=== PATIENT | female | born 1995 | race Caucasian/White ===

== ENCOUNTER 2017-12-27 12:07 | Observation (INO) | payer MEDICAID, OTHER, SELFPAY ==
[2017-12-27 12:43] LABS: Urine Blood NEGATIVE (NEG); Urine Glucose NEGATIVE (NEG); Urine Protein TRACE (NEG)
[2017-12-27] MEDS ORDERED: NA CHLORIDE 0.9% 1,000 ML ONE ×5 (12:48→17:53)
[2017-12-27 12:56] LABS: Absolute Lymphocytes (CBC) 2.3 K/uL (0.7-4.9); Absolute Monocytes 0.8 K/uL (0.1-1.3); Basophils % 0.6 % (0-1.3); Hematocrit 37.1 % (36.0-45.0); Lymphocytes % 22.6 % (15.3-44.8); MCH 31.2 pg (27.0-35.0); MPV 9.7 fL (7.6-11.3); Monocytes % 8.1 % (3.3-12.3); RBC Red Blood Cell Count 4.08 M/uL (3.86-4.86)
[2017-12-27 12:59] LABS: Urine Bacteria 20-50 /HPF (<20); Urine RBC NONE SEEN /HPF (NONE SEEN)
[2017-12-27 13:00] LABS: Urine Amorphous Sediment 3+ /HPF (NONE SEEN); Urine Culture Reflex Order NOT NEEDED
[2017-12-27 13:33] LABS: Potassium 3.5 mmol/L (3.5-5.1)
--- NOTE | 2017-12-27 13:48 | ER ---
Nurse's Notes [facility] Name: Stephanie Campos Age: 22 yrs Sex: Female : 1995 Arrival Date: 12/27/2017 Time: 12:08 Bed 5 Private MD: Diagnosis: Ectopic Presentation: 12/27 12:11 Presenting complaint: Patient states: Sudden sharp pain in lower abdomen that radiates aj up into chest. Also reports right flank pain that started suddenly. Reports episode of diaphoresis and lightheadedness. Transition of care: patient was not received from another setting of care. Onset of symptoms was December 27, 2017. Risk Assessment: Do you want to hurt yourself or someone else? Patient reports no desire to harm self or others. Initial Sepsis Screen: Does the patient meet any 2 criteria? No. Patient's initial sepsis screen is negative. Does the patient have a suspected source of infection? No. Patient's initial sepsis screen is negative. Care prior to arrival: None. 12:11 Method Of Arrival: Ambulatory 12:11 Acuity: OPHELIA 2 aj Triage Assessment: 12:13 General: Appears in no apparent distress. comfortable, Behavior is calm, cooperative, aj appropriate for age. Pain: Complains of pain in back, chest, abdomen and pelvis. Neuro: Level of Consciousness is awake, alert, obeys commands, Oriented to person, place, time, situation, Appropriate for age. Neuro: Reports dizziness. Respiratory: Airway is patent Respiratory effort is even, unlabored, Respiratory pattern is regular, symmetrical. GI: Reports lower abdominal pain, upper abdominal pain. Derm: Skin is intact, is healthy with good turgor, Skin is pink, warm \T\ dry. normal. 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 - Social history:: Smoking status: Patient uses tobacco products, denies chronic smoking, but will smoke occasionally. - Ebola Screening: : Patient negative for fever greater than or equal to 101.5 degrees Fahrenheit, and additional compatible Ebola Virus Disease symptoms Patient denies exposure to infectious person Patient denies travel to an Ebola-affected area in the 21 days before illness onset No symptoms or risks identified at this time. Screenin:24 Abuse screen: Denies threats or abuse. Denies injuries from another. Nutritional bp screening: No deficits noted. Tuberculosis screening: No symptoms or risk factors identified. Fall Risk None identified. Assessment: 12:24 General: Appears distressed, uncomfortable, Behavior is cooperative, appropriate for bp age, anxious. Pain: Complains of pain in abdomen. Neuro: Level of Consciousness is obeys commands, lethargic, Oriented to person, place, time, situation, Appropriate for age. Cardiovascular: Rhythm is sinus tachycardia. Respiratory: Airway is patent Respiratory effort is even, unlabored, Respiratory pattern is regular, symmetrical. GI: Bowel sounds present X 4 quads. Abd is soft X 4 quads Abdomen is tender to palpation in umbilical area, right lower quadrant and left lower quadrant. : No signs and/or symptoms were reported regarding the genitourinary system. EENT: No deficits noted. Derm: No deficits noted. Musculoskeletal: Circulation, motion, and sensation intact. Range of motion: intact in all extremities. 12:45 Reassessment: PT GROSSLY TACHYCARDIC ON MONITOR, PROVIDER INFORMED. IVF INFUSING, U/S bp PENDING FOR R/O ECTOPIC. 13:03 Reassessment: PT TO U/S. LAB TO SEND PHLEBOTOMY FOR RECOLLECT. bp 13:29 Reassessment: pt returned from US via stretcher, Tech reports pt felt like she was iw going to faint when she sat up, pt now lying in supine position, pt remains tachycardia at 115 bpm, BLAISE Sanford at bedside, order for 2nd IV placement. 13:37 Reassessment: PER U/S, INITIAL IMPRESSION INDICATES POSSIBLE ECTOPIC. bp 14:15 Reassessment: INSTRUCTIONAL ASSISTANT AT B/S. PT TBA TO OR. bp 14:47 Reassessment: OR AT B/S. PT BRIEFLY HYPOTENSIVE AND DIAPHORETIC, NS BOLUS ADMINISTERED. bp PT KIKA WITH OR PERSONNEL. Vital Signs: 12:13 BP 123 / 88; Pulse 126; Resp 19; Temp 97.9; Pulse Ox 100% on R/A; Weight 70.31 kg; aj Height 5 ft. 4 in. (162.56 cm); 12:45 BP 121 / 79; Pulse 152; Resp 20; Pulse Ox 100% ; bp 13:29 BP 103 / 72; Pulse 115; Resp 18 S; Pulse Ox 99% on R/A; Pain 10/10; iw 13:38 BP 116 / 78; Pulse 67; Resp 14; Pulse Ox 100% ; bp 14:30 BP 109 / 81; Pulse 130; Resp 14; Pulse Ox 100% ; bp 14:34 BP 75 / 65; Pulse 123; Resp 15; Pulse Ox 98% ; bp 14:42 BP 94 / 56; Pulse 109; Resp 15; Pulse Ox 98% ; bp 12:13 Body Mass Index 26.61 (70.31 kg, 162.56 cm) aj ED Course: 12:08 Patient arrived in ED. mr 12:12 Triage completed. aj 12:13 Arm band placed on right wrist. Patient placed in an exam room. aj 12:15 Juvenal Rodriguez NP is PHCP. pm1 12:15 Indra Tate MD is Attending Physician. pm1 12:23 Neftaly Moore, SAKINA is Primary Nurse. bp 12:24 Patient has correct armband on for positive identification. Bed in low position. Call bp light in reach. Side rails up X2. 12:34 Urine collected: clean catch specimen, clear. dh3 12:34 Inserted saline lock: 20 gauge in right antecubital area, using aseptic technique. bp Blood collected. 13:22 US Transvaginal Ob In Process Unspecified. EDMS 13:45 Lab(s) recollected, by me, sent to lab. dh3 13:45 Inserted saline lock: 22 gauge in left antecubital area, using aseptic technique. bp 13:47 Krista Mcdonough MD is Hospitalizing Provider. pm1 14:06 EKG done, by diagnostic technician. reviewed by Juvenal Rodriguez NP. sm3 14:50 No provider procedures requiring assistance completed. bp 14:50 Patient admitted, IV remains in place. bp Administered Medications: 12:47 Drug: NS 0.9% 1000 ml Route: IV; Rate: 1000 ml; Site: right antecubital; bp 14:15 Follow up: IV Status: Completed infusion; IV Intake: 1000ml bp 14:15 Drug: fentaNYL (PF) 25 mcg Route: IVP; Site: right antecubital; bp 14:30 Follow up: Response: Pain is decreased bp 14:15 Drug: NS 0.9% 1000 ml Route: IV; Rate: 125 ml/hr; Site: right antecubital; bp 14:31 Follow up: IV Status: Infusion continued upon admission bp 14:35 Drug: Zofran 4 mg Route: IVP; Site: right antecubital; bp 14:47 Follow up: Response: Nausea is decreased bp Intake: 14:15 IV: 1000ml; Total: 1000ml. bp Outcome: 13:47 Decision to Hospitalize by Provider. pm1 14:51 Admitted to OR accompanied by nurse, via stretcher, with chart. bp 14:52 Condition: stable bp 14:52 Instructed on the need for admit. 14:54 Patient left the ED. bp Signatures: Dispatcher [employer] EDMS Breana Miranda RN RN aj Rivera, Mary mr Williams, Irene, RN Juvenal Toro, BLAISE OVERLAY OPERATOR pm1 Luz Maria Ingram 3 Neftaly Moore RN RN bp Montes, Shakira 3
--- NOTE | 2017-12-27 13:48 | EDPHYS ---
Physician Documentation [facility] Name: Stephanie Campos Age: 22 yrs Sex: Female : 1995 Arrival Date: 12/27/2017 Time: 12:08 Bed 5 Private MD: ED Physician Indra Tate HPI: 12/27 12:44 This 22 yrs old Female presents to ER via Ambulatory with complaints of pm1 Abdominal Pain, Flank Pain. 12:44 The patient presents with abdominal pain in the lower abdomen, right flank. Onset: The pm1 symptoms/episode began/occurred this morning. The symptoms do not radiate. Associated signs and symptoms: Pertinent positives: dizziness, Pertinent negatives: nausea, vomiting, and diarrhea, chest pain, shortness of breath. The symptoms are described as sharp. Modifying factors: The symptoms are alleviated by nothing, the symptoms are aggravated by nothing. Severity of pain: in the emergency department the pain is actually worse. The patient has not experienced similar symptoms in the past. The patient has not recently seen a physician. 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 - Social history:: Smoking status: Patient uses tobacco products, denies chronic smoking, but will smoke occasionally. - Ebola Screening: : Patient negative for fever greater than or equal to 101.5 degrees Fahrenheit, and additional compatible Ebola Virus Disease symptoms Patient denies exposure to infectious person Patient denies travel to an Ebola-affected area in the 21 days before illness onset No symptoms or risks identified at this time. ROS: 12:44 Constitutional: Negative for fever, chills, and weight loss, Eyes: Negative for injury, pm1 pain, redness, and discharge, ENT: Negative for injury, pain, and discharge, Neck: Negative for injury, pain, and swelling, Cardiovascular: Negative for chest pain, palpitations, and edema, Respiratory: Negative for shortness of breath, cough, wheezing, and pleuritic chest pain, Back: Negative for injury and pain. 12:44 : Negative for injury, bleeding, discharge, and swelling, MS/Extremity: Negative for injury and deformity, Skin: Negative for injury, rash, and discoloration. 12:44 Abdomen/GI: Positive for abdominal pain, of the suprapubic area. 12:44 Abdomen/GI: Negative for nausea, vomiting, and diarrhea. 12:44 Back: Positive for flank pain, on the right. 12:44 Neuro: Positive for dizziness, Negative for numbness, syncope, tingling, weakness. Exam: 12:44 Constitutional: This is a well developed, well nourished patient who is awake, alert, pm1 and in no acute distress. Head/Face: Normocephalic, atraumatic. Eyes: Pupils equal round and reactive to light, extra-ocular motions intact. Lids and lashes normal. Conjunctiva and sclera are non-icteric and not injected. Cornea within normal limits. Periorbital areas with no swelling, redness, or edema. ENT: Nares patent. No nasal discharge, no septal abnormalities noted. Tympanic membranes are normal and external auditory canals are clear. Oropharynx with no redness, swelling, or masses, exudates, or evidence of obstruction, uvula midline. Mucous membranes moist. Neck: Trachea midline, no thyromegaly or masses palpated, and no cervical lymphadenopathy. Supple, full range of motion without nuchal rigidity, or vertebral point tenderness. No Meningismus. Chest/axilla: Normal chest wall appearance and motion. Nontender with no deformity. No lesions are appreciated. Cardiovascular: Regular rate and rhythm with a normal S1 and S2. No gallops, murmurs, or rubs. Normal PMI, no JVD. No pulse deficits. Respiratory: Lungs have equal breath sounds bilaterally, clear to auscultation and percussion. No rales, rhonchi or wheezes noted. No increased work of breathing, no retractions or nasal flaring. 12:44 Skin: Warm, dry with normal turgor. Normal color with no rashes, no lesions, and no evidence of cellulitis. MS/ Extremity: Pulses equal, no cyanosis. Neurovascular intact. Full, normal range of motion. 12:44 Abdomen/GI: Inspection: abdomen appears normal, Bowel sounds: normal, Palpation: soft, moderate abdominal tenderness, in the suprapubic area and left lower quadrant, mass, is not appreciated. 12:44 Back: pain, of the right low back, ROM is normal, normal spinal alignment noted. 12:44 Neuro: Orientation: is normal, Motor: is normal, moves all fours. Vital Signs: 12:13 BP 123 / 88; Pulse 126; Resp 19; Temp 97.9; Pulse Ox 100% on R/A; Weight 70.31 kg; aj Height 5 ft. 4 in. (162.56 cm); 12:45 BP 121 / 79; Pulse 152; Resp 20; Pulse Ox 100% ; bp 13:29 BP 103 / 72; Pulse 115; Resp 18 S; Pulse Ox 99% on R/A; Pain 10/10; iw 13:38 BP 116 / 78; Pulse 67; Resp 14; Pulse Ox 100% ; bp 14:30 BP 109 / 81; Pulse 130; Resp 14; Pulse Ox 100% ; bp 14:34 BP 75 / 65; Pulse 123; Resp 15; Pulse Ox 98% ; bp 14:42 BP 94 / 56; Pulse 109; Resp 15; Pulse Ox 98% ; bp 12:13 Body Mass Index 26.61 (70.31 kg, 162.56 cm) aj MDM: 12:16 Patient medically screened. pm1 13:46 Data reviewed: vital signs. Data interpreted: Pulse oximetry: on room air is 100 %. pm1 Interpretation: normal. Counseling: I had a detailed discussion with the patient and/or guardian regarding: the historical points, exam findings, and any diagnostic results supporting the discharge/admit diagnosis, lab results, radiology results, the need for further work-up and treatment in the hospital. 13:50 Physician consultation: Krista Mcdonough MD was called at 13:50. pm1 13:50 Physician consultation: Krista Mcdonough MD Message left with her office staff ruptured pm1 ectopic . Dr. Mcdonough not in the office and will call back. 14:13 Physician consultation: Krista Mcdonough MD was contacted at 14:10, regarding admission, pm1 consult, patient's condition, and will see patient in ED, will see her in the ER to take her to OR. Request contact general house worker/OR for surgery . 14:13 ED course: welding supervisor and OR contacted by ER dental secretary. pm1 14:23 Physician consultation: Krista Mcdonough MD in the emergency department to see patient at pm1 14:20, will take the patient to surgery . 12/27 12:28 Order name: Urine Microscopic Only; Complete Time: 13:11 pm1 12/27 12:28 Order name: Quantitative Hcg; Complete Time: 13:45 pm1 12/27 12:28 Order name: Abo/rh Typing pm1 12/27 12:28 Order name: Basic Metabolic Panel; Complete Time: 13:45 pm1 12/27 12:28 Order name: CBC with Diff; Complete Time: 13:11 pm1 12/27 12:36 Order name: Urine Dipstick--Ancillary (enter results); Complete Time: 13:11 eb 12/27 12:28 Order name: US Transvaginal Ob; Complete Time: 13:51 pm1 12/27 12:36 Order name: Urine --Ancillary (enter results); Complete Time: 13:11 eb 12/27 13:12 Order name: UDS pm1 12/27 14:02 Order name: ABO/RH no charge; Complete Time: 14:27 EDMS 12/27 12:28 Order name: Urine Dipstick-Ancillary (obtain specimen); Complete Time: 12:35 pm1 12/27 12:28 Order name: Urine Test (obtain specimen); Complete Time: 12:35 pm1 12/27 12:28 Order name: IV Saline Lock; Complete Time: 12:44 pm1 12/27 12:28 Order name: Labs collected and sent; Complete Time: 12:44 pm1 12/27 12:28 Order name: NPO; Complete Time: 12:45 pm1 Administered Medications: 12:47 Drug: NS 0.9% 1000 ml Route: IV; Rate: 1000 ml; Site: right antecubital; bp 14:15 Follow up: IV Status: Completed infusion; IV Intake: 1000ml bp 14:15 Drug: fentaNYL (PF) 25 mcg Route: IVP; Site: right antecubital; bp 14:30 Follow up: Response: Pain is decreased bp 14:15 Drug: NS 0.9% 1000 ml Route: IV; Rate: 125 ml/hr; Site: right antecubital; bp 14:31 Follow up: IV Status: Infusion continued upon admission bp 14:35 Drug: Zofran 4 mg Route: IVP; Site: right antecubital; bp 14:47 Follow up: Response: Nausea is decreased bp Disposition: 15:06 Co-signature as Attending Physician, Indra Tate MD. rn Disposition: 12/27/17 13:47 Hospitalization ordered by Krista Mcdonough for Observation. Preliminary diagnosis is Ectopic . - Bed requested for Telemetry/MedSurg (observation). - Status is Observation. bp - Condition is Stable. - Problem is new. - Symptoms have improved. UTI on Admission? No Signatures: Dispatcher [employer] EDMS Breana Miranda RN RN Indra Tate MD MD rn Marinas, Patrick, FARM PLANNER FARM PLANNER pm1 Neftaly Moore RN RN bp Corrections: (The following items were deleted from the chart) 14:24 13:47 Hospitalization Ordered by Krista Mcdonough MD for Inpatient Admission. Preliminary pm1 diagnosis is Ectopic . Bed requested for Telemetry/MedSurg (Inpatient). Status is Inpatient Admission. Condition is Stable. Problem is new. Symptoms have improved. UTI on Admission? No. pm1 14:54 14:24 12/27/2017 13:47 Hospitalization Ordered by Krista Mcdonough MD for Observation. bp Preliminary diagnosis is Ectopic . Bed requested for Telemetry/MedSurg (observation). Status is Observation. Condition is Stable. Problem is new. Symptoms have improved. UTI on Admission? No. pm1
--- NOTE | 2017-12-27 13:48 | RAD REPORT ---
EXAM DESCRIPTION: US - Transvaginal OB - 12/27/2017 1:22 pm CLINICAL HISTORY: Abdominal and pelvic pain, positive urine , pending beta HCG COMPARISON: None. TECHNIQUE: Endovaginal sonography performed. FINDINGS: No intrauterine gestational sac is identifiable or confirmed. In the fundal right lateral aspect of the endometrial cavity there is a very small fluid collection. This is potentially a very e corie IUP but is far below 5 weeks in age. There is no yolk sac or pole. No hemorrhagic material or other abnormality in the endometrial cavity. Right ovary is identifiable. Left ovary was not clearly seen. No discrete mass is identifiable to identify an ectopic . There is a large volume of hemorrh agic material in the cul-de-sac and in each adnexa. Findings telephoned to the referring clinician at the time of the study. IMPRESSION: Large amount of intraperitoneal hemorrhage is identifiable. No focal mass to localize an ectopic . No IUP confirmed. There is a very small fluid collection in the right fundal portion of the endometri al cavity far below 5 week age if this is an early IUP.
[2017-12-27] MEDS ORDERED: FENTANYL CITR 100 MCG/2 ML ONE ×3 (14:23→17:00)
[2017-12-27] MEDS ORDERED: ONDANSETRON 4 MG/2 ML VIAL ONE (14:40)
[2017-12-27] MEDS ORDERED: Ringers Lactate 1,000 ML IV ONE ×4 (14:57→17:09)
[2017-12-27] MEDS ORDERED: PROPOFOL 200 MG/20 ML VIAL IV ONE (15:03)
[2017-12-27] MEDS ORDERED: MIDAZOLAM HCL 2 MG/2 ML INJ ONE (15:05)
[2017-12-27] MEDS ORDERED: LIDOCAINE 2% MPF 5 ML VIAL ONE (15:05)
[2017-12-27] MEDS ORDERED: ROCURONIUM 50 MG/5 ML VIAL IV ONE ×2 (15:06→16:23)
[2017-12-27] MEDS ORDERED: ONDANSETRON HCL 40 MG/20 ML VIAL ONE (15:06)
[2017-12-27] MEDS ORDERED: SUCCINYLCHOLINE 20 MG/ML (10 ML) IV ONE (15:11)
[2017-12-27] MEDS ORDERED: Phenylephrine HCl 10 MG/ML 1 ML VIAL ONE (15:46)
[2017-12-27] MEDS ORDERED: HETASTARCH/NACL (HESPAN) 500 ML IV ONE (15:51)
[2017-12-27] MEDS ORDERED: NEOSTIGMINE 1 MG/ML -5 ML SYRINGE ONE (16:41)
[2017-12-27] MEDS ORDERED: GLYCOPYRROLATE 0.2 MG/ML SYR ONE (16:42)
[2017-12-27] MEDS ORDERED: IBUPROFEN 400 MG TAB PO PRN (16:48)
[2017-12-27] MEDS: MEPERIDINE HCL 50 MG/ML AMP ONE ×6 (16:58→18:00)
[2017-12-27] MEDS: HYDROMORPHONE HCL 1 MG/ML INJ ONE ×8 (17:26→18:25)
[2017-12-27 17:30] LABS: Hematocrit 23.1 % (36.0-45.0)
[2017-12-27] MEDS ORDERED: DEXAMETHASONE 10 MG/ML VIAL ONE (18:20)
[2017-12-27 18:48] VITALS: O2SAT 99
[2017-12-27 20:07] VITALS: BMI 26.2
[2017-12-27 21:01] LABS: Hematocrit 26.2 % (36.0-45.0)
[2017-12-27] MEDS: Oxycodone HCl/Acetaminophen 1 TAB TAB PO PRN (22:20)
--- NOTE | 2017-12-27 22:33 | P.OP ---
Lead Person: NONE,NONE Preoperative diagnosis: Ruptured ectopic Postoperative diagnosis: same, and hemoperitoneum Primary procedure: diagnostic laparoscopy, evacuation of hemoperitoneum, right salpingectomy Secondary procedure: none Anesthesia: general Estimated blood loss: 1000cc of hemoperitoneum Specimen: right fallopian tube Findings: extensive amount of hemoperitoneum Operative Technique: After an informed consent was obtained, the patient was taken to the operating room and the general anesthetic was administered. She was then positioned in the dorsal lithotomy position and prepped and draped in the normal sterile fashion. Once the anesthetic was found to be adequate, a bimanual exam was performed under anesthetic. A bivalve speculum was then placed in the vagina. The cervix was then grasped with a single tooth tenaculum and a uterine sound was inserted and the uterus was sounded to 8cm. The cervix was then serially dilated with Martinez dilators to a size #20 Martinez and then a sharp curettage was performed obtaining a moderate amount of decidual appearing At this point, the uterine manipulator was placed in the cervix and the single tooth tenaculum and bivalve speculum were removed. Next, attention was then turned to the abdomen. I removed the dirty gloves in the previous portion of the case. Next, a 4-5 cm incision was made immediately inferior to umbilicus. The superior aspect of the umbilicus was grasped and a Veress needle was inserted through this incision. Next, a syringe was used to inject normal saline into the Veress needle. The normal saline was seen to drop freely, so a Veress needle was connected to the CO2 gas which was started at its lowest setting. The gas was seen to flow freely with normal resistance, so the CO2 gas was advanced to a higher setting. The abdomen was insufflated to an adequate distension. Once an adequate distention was reached, the CO2 gas was disconnected. The Veress needle was removed and a size #11 step trocar was placed. The introducer was removed and the trocar was connected to the CO2 gas and a camera was inserted. Patient was placed in steep trendelenburg. Next, a 1 cm incision was made in the midline approximately 4 fingerbreaths to the left of the umbilicus. A size #5 trocar was inserted under direct visualization. Next a size #5 port was placed approximately five fingerbreadths to the right of the umbilicus in a similar fashion. Next, the suction centrifugal chiller technician was used to copiously irrigate the abdomen. Approximate total of 3 liters of irrigation was used and the majority of all blood clots and free blood was removed from the abdomen. Once the majority of blood was cleaned from the abdomen, the ectopic was easily identified and the end of the right fallopian tube was grasped with the grasper from the and the LigaSure device was then inserted. Three bites with the LigaSure device were used to transect the mesosalpinx inferior to the fallopian tube and then transect the fallopian tube proximal to the ectopic . An EndoCatch bag was then placed to the size #12 port and this was used to remove the right fallopian tube and ectopic . This was then sent to the pathology. Next, the right mesosalpinx and remains of the fallopian tube were examined again and they were seemed to be hemostatic. The abdomen was further irrigated. The liver was examined and appeared to be within normal limits. At this point, the two size #5 ports and a size #11 port were removed under direct visualization. The camera was then removed. The CO2 gas was disconnected and the abdomen was desufflated. All laparoscopic incisions were closed with a #4-0 Monocryl in a subcuticular interrupted fashion. They were then covered with dermabond. At the end of the procedure, the uterine manipulator was removed from the cervix and the patient was taken to Recovery in stable condition. The patient tolerated the procedure well. Sponge, lap, and needle counts were correct x2. Intraoperatively 1 unit of PRBCs were given to the patient. A CBC has been drawn and the results are pending. If the hemoglobin is still low then another unit of PRBCs will be given to the patient. Repeat labs will be drawn tomorrow. The patient will be kept overnight for observation. Complications: None Drain(s): Urinary catheter
[2017-12-28] MEDS: KETOROLAC 30 MG/ML INJ IV PRN ×2 (01:06→10:24)
[2017-12-28] MEDS: MORPHINE 4 MG/ML SYR IV PRN ×3 (02:08→11:32)
--- NOTE | 2017-12-28 02:33 | HP ---
Date of Admission: 12/27/2017 History Of Present Illness: Stephanie is a 22-year-old, 3, para 2-0-0-2, who presents to [facility] emergency room with a ruptured ectopic . The patient recently saw her private OB and was complaining of some abdominal pain last week. She had an HCG level drawn and she was notified that s he was approximately 6 weeks . Patient's pain then worsened and she presented to our emergen cy room today. Upon arrival, she was evaluated by the physician investment sales assistant in the ED who then notifie d me and stated that the patient had a positive HCG and a transvaginal ultrasound that was performed revealing a moderate to extensive amount of fluid collection within the abdomen and the cul-de-sac, a nd no was identifiable. HCG level is 22,556. Past Medical History: Noncontributory. Past Surgical History: Includes 2 sections. Social History: Occasional tobacco use. Review Of Symptoms: Significant for severe abdominal pain, dizziness, shortness of breath. Physical Examination: Vital Signs: Patient appears to be pale. She is tachypneic. Pulse of 130, respirations 18, blood p ressure 109/81, O2 saturation is 98%. General: Patient in bed, very uncomfortable. Head and Neck: Normocephalic, atraumatic. Neck is supple. Abdomen: Severely tender. She has a scar from prior sections. Bilateral Lower Extremities: No clubbing, cyanosis, or edema. Laboratory Findings: Hemoglobin is 12.7, hematocrit 37.1. HCG is 22,556. Assessment: Stephanie is a 22-year-old, 3, para 2-0-0-2, with a ruptured ectopic . Plan: To take the patient to the operating room for a diagnostic laparoscopy and evacuation of hemop eritoneum and possible salpingectomy. I have discussed the risks and benefits with the patient. Isabella rasmussen has consented to the procedure. SELIN Voice ID: [id number]
--- NOTE | 2017-12-28 03:01 | EKG ---
Test Date: 2017-12-27 Test Time: 13:55:19 Bunker Worker: KARMA MEASUREMENT RESULTS: Intervals: Rate: 123 TN: 128 QRSD: 72 QT: 318 QTc: 455 [place]: P: 63 TN: 128 QRS: 60 T: 63 INTERPRETIVE STATEMENTS: Sinus tachycardia Otherwise normal ECG No previous ECG available for comparison Electronically Signed On 12-28-17 03:00:32 CDT by Oscar Staley
[2017-12-28] MEDS: Oxycodone HCl/Acetaminophen 1 TAB TAB PO PRN ×2 (04:21→09:23)
[2017-12-28 05:46] LABS: Absolute Lymphocytes (CBC) 0.7 K/uL (0.7-4.9); Absolute Monocytes 0.3 K/uL (0.1-1.3); Absolute Neutrophil 6.2 K/uL (1.8-8.0); Basophils % 0.1 % (0-1.3); Hematocrit 23.6 % (36.0-45.0); Lymphocytes % 9.1 % (15.3-44.8); MCH 30.3 pg (27.0-35.0); MCV 90.1 fL (80-100); MPV 9.5 fL (7.6-11.3); Monocytes % 4.4 % (3.3-12.3); RBC Red Blood Cell Count 2.62 M/uL (3.86-4.86)
[2017-12-28 06:33] LABS: Blood Morphology Comment NOT SEEN (NOT SEEN); Hypochromasia 1+; Platelet Estimate ADEQ; Urine White Blood Cell Casts OK
[2017-12-28] MEDS ORDERED: Rho(D) IG (HUMAN) 300 MCG SYR IM ONE (08:00)
[2017-12-28 08:54] LABS: Hematocrit 23.6 % (36.0-45.0)
[2017-12-28] MEDS ORDERED: INFLUENZA VACCINE (for 3y+) 0.5 ML DOSE IMVAC ONE ×2 (11:00→15:00)
[2017-12-28 13:26] VITALS: BP 122/68; TEMP 97
--- NOTE | 2017-12-28 16:50 | P.DS ---
Admission Date: 12/27/17 Discharge Date: 12/28/17 Disposition: ROUTINE DISCHARGE Discharge Condition: GOOD Brief History of Present Illness: See history and physical patient was admitted for ruptured ectopic . Hospital Course: Patient was seen in the emergency department for ruptured ectopic and was immediately taken to the operating room at which time she had a diagnostic laparoscopy, evacuation of hemo peritoneum and a right salpingectomy. Patient has been doing well postoperatively. Her pain has been well managed. She has had hematocrit levels repeatedly drawn and they have been stable. She received 2 units of blood - during the surgery 1 unit and 1 unit post op. Postoperatively she has been tolerating a regular diet. She has been ambulating. She weaned ambulated downstairs to smoke a cigarette even though she was highly discouraged to do so. 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 Discussed with patient the importance of adequate follow-up. Recommended that she follow up with him in 1 week or she can see me in my office. Patient verbalized understanding. Patient was given a prescription for Percocet for pain management. And ectopic precautions were given. Emphasized importance of starting on control right away. Vital Signs/Physical Exam: Temp Pulse Resp BP Pulse Ox 97.0 F 107 H 18 122/68 99 12/28/17 12:00 12/28/17 12:00 12/28/17 12:00 12/28/17 12:00 12/28/17 08:00 General: Alert, In no apparent distress HEENT: Atraumatic Neck: Supple Respiratory: Normal air movement Cardiovascular: No edema, Normal pulses Gastrointestinal: Other (Incisional sites are healing. There is some bruising on 1 of the laparoscopic port sites but it is healing well.) Musculoskeletal: No clubbing, No swelling Neurological: Normal gait, Normal speech Laboratory Data at Discharge: WBC 7.2 K/uL (4.3-10.9) D 12/28/17 05:10 Hgb 8.2 g/dL (12.0-15.0) L 12/28/17 08:37 Hct 23.6 % (36.0-45.0) L 12/28/17 08:37 Plt Count 129 K/uL (152-406) L D 12/28/17 05:10 Sodium 138 mmol/L (136-145) 12/27/17 12:35 Potassium 3.5 mmol/L (3.5-5.1) 12/27/17 12:35 BUN 12 mg/dL (7-18) 12/27/17 12:35 Creatinine 0.80 mg/dL (0.55-1.3) 12/27/17 12:35 Glucose 132 mg/dL (74-106) H 12/27/17 12:35 Home Medications: Oxycodone HCl/Acetaminophen [Percocet 5/325 Tab] 1 tab PO Q4H PRN #20 tab New Medications: Oxycodone HCl/Acetaminophen [Percocet 5/325 Tab] 1 tab PO Q4H PRN #20 tab PRN Reason: Pain Diet: Regular Activity: No lifting more than 10 lbs Followup: Rito Mcdonough DO [ACTIVE - CAN ADMIT] - (Follow up with OB in 1 week post surgery.)
== END 2017-12-28 14:20 | disposition home or self-care (01) ==
LOC: ER 12:07 → OR 14:29 → 2ND-WC 14:30
PROVIDERS: ADMIT Student in an Organized Health Care Education/Training Program; ATTEND Student in an Organized Health Care Education/Training Program
PROC: 0UT54ZZ Resection of Right Fallopian Tube, Percutaneous Endoscopic Approach (ICD-10-PCS; 2017-12-27)
PROC: 30233N1 Transfusion of Nonautologous Red Blood Cells into Peripheral Vein, Percutaneous Approach (ICD-10-PCS; 2017-12-27)
PROC: 10T24ZZ Resection of Products of Conception, Ectopic, Percutaneous Endoscopic Approach (ICD-10-PCS; principal; 2017-12-27 15:00)
PROC: 3E0234Z Introduction of Serum, Toxoid and Vaccine into Muscle, Percutaneous Approach (ICD-10-PCS; 2017-12-28)
DX: O00.101 Right tubal pregnancy without intrauterine pregnancy (principal); K66.1 Hemoperitoneum; Z23 Encounter for immunization
CPT/HCPCS: 36415; 76817; 80048; 81003; 81015; 81025; 84702; 85014; 85018; 85025; 86850; 86900; 86901; 88305; 93005; 96361; 96374; 96375; 99285; G0378; J0330; J1100; J1170; J2175; J2250; J2370; J2405; J2710; J2790; J3010; J7030; P9016; Q2035

== ENCOUNTER 2018-01-04 22:52 | Inpatient (IN) | payer OTHER ==
[2018-01-05] MEDS ORDERED: ONDANSETRON 4 MG/2 ML VIAL ONE ×2 (00:02→01:46)
[2018-01-05] MEDS ORDERED: FENTANYL CITR 100 MCG/2 ML ONE ×2 (00:02→03:16)
[2018-01-05] MEDS ORDERED: NA CHLORIDE 0.9% 1,000 ML ONE ×2 (00:02→01:46)
[2018-01-05 00:17] LABS: Urine Blood NEGATIVE (NEG); Urine Glucose TRACE (NEG); Urine Protein 1+ (NEG)
[2018-01-05 00:26] LABS: Absolute Lymphocytes (CBC) 0.7 K/uL (0.7-4.9); Absolute Monocytes 0.7 K/uL (0.1-1.3); Absolute Neutrophil 9.5 K/uL (1.8-8.0); Basophils % 0.2 % (0-1.3); Eosinophils % 0.7 % (0-4.4); Hematocrit 29.9 % (36.0-45.0); Lymphocytes % 6.4 % (15.3-44.8); MCH 31.3 pg (27.0-35.0); MCV 91.8 fL (80-100); MPV 8.6 fL (7.6-11.3); RBC Red Blood Cell Count 3.26 M/uL (3.86-4.86)
[2018-01-05 00:53] LABS: Albumin 3.2 g/dL (3.4-5.0); Bilirubin Direct 0.2 mg/dL (0-0.2); Bilirubin Total 0.5 mg/dL (0.2-1.0); Potassium 3.8 mmol/L (3.5-5.1); Protein, Total 6.4 g/dL (6.4-8.2)
[2018-01-05] MEDS ORDERED: MORPHINE 4 MG/ML SYR ONE (01:28)
[2018-01-05] MEDS ORDERED: CEFTRIAXONE 1000 MG/VIAL ONE (01:30)
--- NOTE | 2018-01-05 01:42 | ER ---
Nurse's Notes [facility] Name: Stephanie Campos Age: 22 yrs Sex: Female : 1995 Arrival Date: 01/04/2018 Time: 22:52 Bed 2 Private MD: Diagnosis: Abdominal tenderness-sp ectopic;Acute tubulo-interstitial nephritis Presentation: 01/04 23:20 Presenting complaint: Patient states: lower abd cramping since yesterday. pt s/p tubal ak1 with right tube removed by Dr. Antoine last week. pt seen by Dr. Antoine Monday. Transition of care: patient was not received from another setting of care. Onset of symptoms was January 03, 2018. Risk Assessment: Do you want to hurt yourself or someone else? Patient reports no desire to harm self or others. Initial Sepsis Screen: Does the patient meet any 2 criteria? No. Patient's initial sepsis screen is negative. Does the patient have a suspected source of infection? No. Patient's initial sepsis screen is negative. Care prior to arrival: None. 23:20 Method Of Arrival: Wheelchair ak1 23:20 Acuity: OPHELIA 3 ak1 Triage Assessment: 23:22 General: Appears uncomfortable, Behavior is calm, cooperative. Pain: Complains of pain ak1 in pelvis. EENT: No deficits noted. Neuro: No deficits noted. Cardiovascular: Patient's skin is warm and dry. Rhythm is sinus tachycardia. Respiratory: No deficits noted. GI: No signs and/or symptoms were reported involving the gastrointestinal system. : Reports cramping, since yesterday. Derm: No signs and/or symptoms reported regarding the dermatologic system. Musculoskeletal: No signs and/or symptoms reported regarding the musculoskeletal system. 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 - Social history:: Smoking status: Patient uses tobacco products, denies chronic smoking, but will smoke occasionally. - Ebola Screening: : No symptoms or risks identified at this time. - Family history:: not pertinent. Screenin/26 00:57 Abuse screen: Denies threats or abuse. Denies injuries from another. Nutritional ak1 screening: No deficits noted. Tuberculosis screening: No symptoms or risk factors identified. Fall Risk None identified. Assessment: 01/04 23:30 General: Appears in no apparent distress. uncomfortable, Behavior is agitated, anxious. ao Pain: Complains of pain in pelvis. Neuro: No deficits noted. Level of Consciousness is awake, alert, obeys commands, Oriented to person, place, time, situation, Appropriate for age Moves all extremities. Full function Speech is normal. Cardiovascular: Heart tones S1 Capillary refill < 3 seconds Patient's skin is warm and dry. Respiratory: Airway is patent Respiratory effort is even, unlabored, Respiratory pattern is regular, symmetrical. GI: Abdomen is distended, bruised on right lower quadrant and left lower quadrant. : Urine is blood tinged. EENT: No signs and/or symptoms were reported regarding the EENT system. Derm: Skin is intact. Musculoskeletal: Circulation, motion, and sensation intact. 01/05 00:55 Reassessment: Patient appears in no apparent distress at this time. No changes from ak1 previously documented assessment. Patient is alert, oriented x 3, equal unlabored respirations, skin warm/dry/pink. 01:18 Reassessment: Patient appears in no apparent distress at this time. Patient is alert, ao oriented x 3, equal unlabored respirations, skin warm/dry/pink. Waiting on dispo orders. 02:05 Reassessment: Received an order from Dr Becker to medicate patient with Fentanyl 50 ao Mcg. See MAR for administration. 03:30 Reassessment: Patient appears in no apparent distress at this time. Patient to be ao admitted to L\T\ D. Patient and significant other agree with POC. Vital Signs: 01/04 23:22 BP 112 / 68; Pulse 136; Resp 18; Temp 99.7(O); Pulse Ox 100% on R/A; Weight 70.31 kg ak1 (R); Height 5 ft. 4 in. (162.56 cm) (R); Pain 9/10; 01/05 00:56 Pulse 109; Resp 18; Pulse Ox 100% on R/A; ak1 01:18 BP 118 / 62; Pulse 121; Resp 16; Pulse Ox 100% on R/A; Pain 8/10; ao 01:56 BP 116 / 66; Pulse 113; Resp 16; Pulse Ox 100% on R/A; oe 03:45 BP 104 / 62; Pulse 116; Resp 18; Pulse Ox 100% ; ao 01/04 23:22 Body Mass Index 26.61 (70.31 kg, 162.56 cm) ak1 ED Course: 01/04 22:52 Patient arrived in ED. ds1 23:20 Prema Chirinos, RN is Primary Nurse. ak1 23:21 Triage completed. ak1 23:22 Arm band placed on Patient placed in an exam room, on a stretcher, on airport electrician, ak1 on pulse oximetry, Patient notified of wait time. 23:37 Reuben Becker MD is Attending Physician. lindsay 01/05 00:[address] via wheelchair. kw1 00:40 CT Abd/Pelvis - W/Contrast In Process Unspecified. EDMS 00:52 CT completed. Patient tolerated procedure well. Patient moved back from CT. kw1 01:19 Patient has correct armband on for positive identification. field party manager on. Pulse ao ox on. NIBP on. 01:37 Tyson Tavares MD is Hospitalizing Provider. lindsay 03:49 No provider procedures requiring assistance completed. Patient admitted, IV remains in ao place. Administered Medications: 00:00 Drug: NS 0.9% 1000 ml Route: IV; Rate: 1 bolus; Site: right antecubital; ao 01:52 Follow up: IV Status: Completed infusion; IV Intake: 1000ml ao 00:00 Drug: fentaNYL (PF) 25 mcg Route: IVP; Site: right antecubital; ao 01:54 Follow up: Response: Pain is unchanged, physician notified ao 00:17 Drug: Zofran 4 mg Route: IVP; Site: right antecubital; ao 01:55 Follow up: Response: No adverse reaction ao 00:18 Drug: fentaNYL (PF) 25 mcg Route: IVP; Site: right antecubital; ao 01:54 Follow up: Response: No adverse reaction ao 01:20 Drug: Rocephin - (cefTRIAXone) 1 grams Route: IVPB; Infused Over: 30 mins; Site: right ao antecubital; 01:55 Follow up: IV Status: Completed infusion; IV Intake: 10ml ao 01:30 Drug: morphine 4 mg Route: IVP; Site: right antecubital; ao 03:05 Follow up: Response: No adverse reaction ao 01:40 Drug: Zofran 4 mg Route: IVP; Site: right antecubital; ao 03:05 Follow up: Response: No adverse reaction ao 01:41 Drug: NS 0.9% 1000 ml Route: IV; Rate: 1 bolus; Site: right antecubital; ao 03:05 Follow up: IV Status: Completed infusion ao 02:05 Drug: fentaNYL (PF) 50 mcg Route: IVP; Site: right antecubital; ao 02:30 Follow up: Response: No adverse reaction; Pain is decreased ao 03:14 Drug: fentaNYL (PF) 50 mcg Route: IVP; Site: right antecubital; ao Intake: 01:52 IV: 1000ml; Total: 1000ml. ao 01:55 IV: 10ml; Total: 1010ml. ao Outcome: 01:42 Decision to Hospitalize by Provider. [facility] 03:50 Admitted to L \T\ D, accompanied by nurse, via stretcher, room 279, with chart, Report ao called to SAKINA Lloyd 03:50 Condition: stable 03:50 Instructed on the need for admit. 03:53 Patient left the ED. ao Signatures: Dispatcher [employer] Reuben Barnett MD MD cha Sanford, Demi ds1 Prema Chirinos RN RN ak1 Mele Myles RN RN Wong Scott Kimberly kw1 Corrections: (The following items were deleted from the chart) 00:57 00:56 BP 143 / 104; Pulse 78bpm; Resp 16bpm; Pulse Ox 100% RA; ak1 ak1
--- NOTE | 2018-01-05 01:42 | EDPHYS ---
Physician Documentation [facility] Name: Stephanie Campos Age: 22 yrs Sex: Female : 1995 Arrival Date: 01/04/2018 Time: 22:52 Bed 2 Private MD: ED Physician Reuben Becker HPI: 01/04 23:48 This 22 yrs old Female presents to ER via Wheelchair with complaints of Post lindsay Surgical Pain. 23:48 The patient presents with abdominal pain in the lower abdomen, abdominal distention in lindsay the lower abdomen. Onset: The symptoms/episode began/occurred 2 day(s) ago. The patient presents with pelvic pain. Onset: The symptoms/episode began/occurred 2 day(s) ago. 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 - Social history:: Smoking status: Patient uses tobacco products, denies chronic smoking, but will smoke occasionally. - Ebola Screening: : No symptoms or risks identified at this time. - Family history:: not pertinent. ROS: 23:48 Constitutional: Negative for fever, chills, and weight loss, Eyes: Negative for injury, lindsay pain, redness, and discharge, ENT: Negative for injury, pain, and discharge, Neck: Negative for injury, pain, and swelling, Cardiovascular: Negative for chest pain, palpitations, and edema, Respiratory: Negative for shortness of breath, cough, wheezing, and pleuritic chest pain, Back: Negative for injury and pain, : Negative for injury, bleeding, discharge, and swelling, MS/Extremity: Negative for injury and deformity, Skin: Negative for injury, rash, and discoloration, Neuro: Negative for headache, weakness, numbness, tingling, and seizure, Psych: Negative for depression, anxiety, suicide ideation, homicidal ideation, and hallucinations, Allergy/Immunology: Negative for hives, rash, and allergies, Endocrine: Negative for neck swelling, polydipsia, polyuria, polyphagia, and marked weight changes, Hematologic/Lymphatic: Negative for swollen nodes, abnormal bleeding, and unusual bruising. 23:48 Abdomen/GI: Positive for abdominal pain, abdominal cramps, of the right lower quadrant and left lower quadrant. Exam: 23:48 Constitutional: This is a well developed, well nourished patient who is awake, alert, lindsay and in no acute distress. Head/Face: Normocephalic, atraumatic. Eyes: Pupils equal round and reactive to light, extra-ocular motions intact. Lids and lashes normal. Conjunctiva and sclera are non-icteric and not injected. Cornea within normal limits. Periorbital areas with no swelling, redness, or edema. ENT: Nares patent. No nasal discharge, no septal abnormalities noted. Tympanic membranes are normal and external auditory canals are clear. Oropharynx with no redness, swelling, or masses, exudates, or evidence of obstruction, uvula midline. Mucous membranes moist. Neck: Trachea midline, no thyromegaly or masses palpated, and no cervical lymphadenopathy. Supple, full range of motion without nuchal rigidity, or vertebral point tenderness. No Meningismus. Chest/axilla: Normal chest wall appearance and motion. Nontender with no deformity. No lesions are appreciated. Cardiovascular: Regular rate and rhythm with a normal S1 and S2. No gallops, murmurs, or rubs. Normal PMI, no JVD. No pulse deficits. Respiratory: Lungs have equal breath sounds bilaterally, clear to auscultation and percussion. No rales, rhonchi or wheezes noted. No increased work of breathing, no retractions or nasal flaring. Back: No spinal tenderness. No costovertebral tenderness. Full range of motion. Female : Normal external genitalia. Skin: Warm, dry with normal turgor. Normal color with no rashes, no lesions, and no evidence of cellulitis. MS/ Extremity: Pulses equal, no cyanosis. Neurovascular intact. Full, normal range of motion. Neuro: Awake and alert, GCS 15, oriented to person, place, time, and situation. Cranial nerves II-XII grossly intact. Motor strength 5/5 in all extremities. Sensory grossly intact. Cerebellar exam normal. Normal gait. Psych: Awake, alert, with orientation to person, place and time. Behavior, mood, and affect are within normal limits. 23:48 Abdomen/GI: Inspection: distension, Bowel sounds: diminished, Palpation: moderate abdominal tenderness, in the right lower quadrant and left lower quadrant, Liver: no appreciated palpable abnormalities, Hernia: not appreciated, abdominal wall ecchymosis. Vital Signs: 23:22 BP 112 / 68; Pulse 136; Resp 18; Temp 99.7(O); Pulse Ox 100% on R/A; Weight 70.31 kg ak1 (R); Height 5 ft. 4 in. (162.56 cm) (R); Pain 9/; 01/05 00:56 Pulse 109; Resp 18; Pulse Ox 100% on R/A; ak1 01:18 BP 118 / 62; Pulse 121; Resp 16; Pulse Ox 100% on R/A; Pain 8/10; ao 01:56 BP 116 / 66; Pulse 113; Resp 16; Pulse Ox 100% on R/A; oe 03:45 BP 104 / 62; Pulse 116; Resp 18; Pulse Ox 100% ; ao 01/04 23:22 Body Mass Index 26.61 (70.31 kg, 162.56 cm) ak1 MDM: 01/04 23:37 Patient medically screened. [facility] 23:52 Data reviewed: vital signs, nurses notes, lab test result(s), EKG, radiologic studies, lindsay plain films. 01/04 23:41 Order name: Basic Metabolic Panel; Complete Time: 01:[address] [facility] 01/04 23:41 Order name: CBC with Diff [facility] 01/04 23:41 Order name: Creatinine for Radiology; Complete Time: 01:[address] [facility] 01/04 23:41 Order name: Hepatic Function; Complete Time: 01:[address] [facility] 01/04 23:41 Order name: Lipase; Complete Time: 01:[address] [facility] 01/04 23:41 Order name: Urine Culture [facility] 01/04 23:41 Order name: Quantitative Hcg; Complete Time: 01:[address] [facility] 01/04 23:47 Order name: Type And Screen [facility] 01/05 00:15 Order name: Urine Dipstick--Ancillary (enter results); Complete Time: 01:04 [facility] 01/05 00:15 Order name: Urine --Ancillary (enter results); Complete Time: 01:04 [facility] 01/05 01:51 Order name: HCG, Quantitative [facility] 01/05 01:51 Order name: Basic Metabolic Panel [facility] 01/05 01:51 Order name: Basic Metabolic Panel EDMS 01/05 01:51 Order name: CBC with Automated Diff [facility] 01/04 23:45 Order name: US Transvaginal Ob [facility] 01/04 23:47 Order name: CT Abd/Pelvis - W/Contrast [facility] 01/05 01:51 Order name: CBC with Automated Diff [facility] 01/05 01:51 Order name: Lipase [facility]GA 01/05 01:51 Order name: Lipase [facility]GA 01/05 01:51 Order name: Liver (Hepatic) Function [facility] 01/05 01:51 Order name: Liver (Hepatic) Function [facility] 01/04 23:41 Order name: IV Saline Lock; Complete Time: 00:[address] [facility] 01/04 23:41 Order name: Labs collected and sent; Complete Time: 00:[address] [facility] 01/04 23:41 Order name: Urine Dipstick-Ancillary (obtain specimen); Complete Time: 00:[address] [facility] 01/04 23:41 Order name: Urine Test (obtain specimen); Complete Time: 00:[address] [facility] 01/05 01:50 Order name: NPO EDGA Administered Medications: 01/05 00:00 Drug: NS 0.9% 1000 ml Route: IV; Rate: 1 bolus; Site: right antecubital; ao 01:52 Follow up: IV Status: Completed infusion; IV Intake: 1000ml ao 00:00 Drug: fentaNYL (PF) 25 mcg Route: IVP; Site: right antecubital; ao 01:54 Follow up: Response: Pain is unchanged, physician notified ao 00:17 Drug: Zofran 4 mg Route: IVP; Site: right antecubital; ao 01:55 Follow up: Response: No adverse reaction ao 00:18 Drug: fentaNYL (PF) 25 mcg Route: IVP; Site: right antecubital; ao 01:54 Follow up: Response: No adverse reaction ao 01:20 Drug: Rocephin - (cefTRIAXone) 1 grams Route: IVPB; Infused Over: 30 mins; Site: right ao antecubital; 01:55 Follow up: IV Status: Completed infusion; IV Intake: 10ml ao 01:30 Drug: morphine 4 mg Route: IVP; Site: right antecubital; ao 03:05 Follow up: Response: No adverse reaction ao 01:40 Drug: Zofran 4 mg Route: IVP; Site: right antecubital; ao 03:05 Follow up: Response: No adverse reaction ao 01:41 Drug: NS 0.9% 1000 ml Route: IV; Rate: 1 bolus; Site: right antecubital; ao 03:05 Follow up: IV Status: Completed infusion ao 02:05 Drug: fentaNYL (PF) 50 mcg Route: IVP; Site: right antecubital; ao 02:30 Follow up: Response: No adverse reaction; Pain is decreased ao 03:14 Drug: fentaNYL (PF) 50 mcg Route: IVP; Site: right antecubital; ao Disposition: 01/05/18 01:42 Hospitalization ordered by Tyson Tavares for Inpatient Admission. Preliminary diagnosis are Abdominal tenderness - sp ectopic, Acute tubulo-interstitial nephritis. - [facility]. - Status is Inpatient Admission. ao - Condition is Fair. - Problem is new. - Symptoms have improved. UTI on Admission? Yes Signatures: Dispatcher [employer] EDMS Reuben Becker MD MD cha Chretien, Felicia RN RN Prema Chirinos RN RN ia1 Mele Myles RN RN ao Corrections: (The following items were deleted from the chart) 03:35 01:42 Hospitalization Ordered by Tyson Tavares MD for Inpatient Admission. Preliminary diagnosis is Abdominal tenderness - sp ectopic; Acute tubulo-interstitial nephritis. Bed requested for Telemetry/MedSurg (Inpatient). Status is Inpatient Admission. Condition is Fair. Problem is new. Symptoms have improved. UTI on Admission? Yes. [facility] 03:53 03:35 01/05/2018 01:42 Hospitalization Ordered by Tyson Tavares MD for Inpatient ao Admission. Preliminary diagnosis is Abdominal tenderness - sp ectopic; Acute tubulo-interstitial nephritis. Bed requested [facility]. Status is Inpatient Admission. Condition is Fair. Problem is new. Symptoms have improved. UTI on Admission? Yes.
[2018-01-05] MEDS: D5 0.45 NS 1,000 ML IV SCH ×3 (04:05→20:43)
[2018-01-05] MEDS ORDERED: D5 0.45 NS 1,000 ML IV ONE (04:05)
[2018-01-05] MEDS: ACETAMINOPHEN 500 MG TAB PO PRN ×3 (04:10→18:15)
[2018-01-05] MEDS: KETOROLAC 30 MG/ML INJ IV PRN ×3 (04:10→15:55)
[2018-01-05 04:32] LABS: Blood Morphology Comment NOT SEEN (NOT SEEN); Platelet Estimate ADEQ; Urine White Blood Cell Casts OK
[2018-01-05 04:40] VITALS: BMI 26.6
--- NOTE | 2018-01-05 07:27 | RAD REPORT ---
EXAM DESCRIPTION: CT - Abdomen Pelvis W Contrast - 01/05/2018 3:27 am CLINICAL HISTORY: Abdominal pain ; history of right-sided ectopic with right salpingectomy approximately 1 week earlier A preliminary report was provided at the time of the study and reviewed prior to final report. COMPARISON: None. TECHNIQUE: Biphasic, helical CT imaging of the abdomen and pelvis was performed following 100 ml non -ionic IV contrast. Oral contrast was given. All CT scans are performed using dose optimization technique as appropriate and may include automated exposure control or mA/KV adjustment according to patient size. FINDINGS: No suspicious findings in the lung bases. The liver, spleen, and pancreas show no suspicious findings. Gallbladder and biliary tree are also wi thout suspicious finding. No hydronephrosis or obstructing calculus. No perinephric stranding is seen. There is some heterogene ity of the renal parenchymal enhancement pattern. A mild pyelonephritis is not excluded. Correlation is needed with any UA abnormalities that might indicate pyelonephritis. Urinary bladder is mostly con tracted limiting evaluation. No bladder calculus seen. No gastric dilatation or wall thickening. No dilated large or small bowel. Appendix is not clearly de fined. A few mildly prominent fluid-filled small bowel loops are present. Patient has several small s ub centimeter mesenteric lymph nodes. No free air or pneumatosis. There is fluid in the cul-de-sac and bilateral adnexa. Primary left ovari an process is not suspected. Right ovary is difficult to uniquely identified. No history to indicate that a right oophorectomy performed. The fluid in the cul-de-sac and adnexa is slightly greater in at tenuation than typical reactive fluid. There is a stranding component. No abnormal extraluminal air o r walled-off collection to indicate abscess. No mass or bulky lymphadenopathy. Postsurgical changes are noted to the anterior abdominal wall and subcutaneous fat from the recent surgical procedure. There does appear to be a small ventral hernia defect below the umbilicus. No suspicious bony findings. IMPRESSION: Fluid in stranding are present in the cul-de-sac and bilateral adnexa in a patient appro ximately 1 week status post right salpingectomy for ectopic . No abscess is confirmed on this study. Findings may reflect residual fluid and blood from the surgica l procedure. Right ovary is not clearly defined. The appendix is not clearly defined. Prominence of the small bowel is probably reactive ileus from th e recent surgery. Slight heterogeneity of the left renal parenchymal enhancement. A mild left-sided pyelonephritis is p ossible and needs correlation with clinical presentation and exam findings.
[2018-01-05 08:29] LABS: Absolute Lymphocytes (CBC) 0.6 K/uL (0.7-4.9); Absolute Monocytes 0.5 K/uL (0.1-1.3); Absolute Neutrophil 10.3 K/uL (1.8-8.0); Basophils % 0.2 % (0-1.3); Eosinophils % 0.3 % (0-4.4); Hematocrit 26.1 % (36.0-45.0); Lymphocytes % 5.1 % (15.3-44.8); MCH 30.7 pg (27.0-35.0); MCV 92.3 fL (80-100); MPV 8.1 fL (7.6-11.3); Monocytes % 4.6 % (3.3-12.3); RBC Red Blood Cell Count 2.82 M/uL (3.86-4.86)
[2018-01-05] MEDS ORDERED: CEFTRIAXONE 1 GM/NS 50 ML 1 GM/50 ML BAG IV SCH (09:00)
--- NOTE | 2018-01-05 11:04 | RAD REPORT ---
EXAM DESCRIPTION: US - Transvaginal OB - 01/05/2018 10:08 am CLINICAL HISTORY: Abdominal pain, pelvic pain, recent right-sided salpingectomy for ectopic pregnanc y COMPARISON: CT study same date, ultrasound December 27 TECHNIQUE: Endovaginal sonography was performed. FINDINGS: No uterine abnormality seen. No focal endometrial or myometrial abnormality seen. Endometr ial stripe is 7 mm. Uterus is 9.0 x 4.0 x 4.8 cm. Left ovary is identified and normal in size. No suspicious ovarian finding. Right ovary was not ident ifiable. In the right adnexa and cul-de-sac fluid is present but has heterogeneous echogenicity. Clotted blood is seen in the cul de sac. The free fluid is believed to be serosanguineous collection consisting of surgical flush from the procedure and hemorrhagic products. No abscess identified. IMPRESSION: Heterogeneous material is identified in the cul-de-sac and right adnexa believed to be a combination of hematoma, seroma and free fluid that is probably surgical flush from the salpingectom y. Nonvisualization of the right ovary. Normal left ovary. No uterine abnormality.
--- NOTE | 2018-01-05 11:30 | PREOPHP ---
Date of Admission: 01/05/2018 A 22-year-old female, patient of Dr. Mcdonough's. Approximately a week or little bit more ago, the patie nt underwent diagnostic laparoscopy for ruptured tubal ectopic , right salpingectomy, blood transfusion, was subsequently dismissed, started having abdominal discomfort and bloating again, was seen Monday, this week in Dr. Mcdonough's office and then sent home, came back to the emergency room w ith complaints of again abdominal discomfort. The report was they were on the right side, the patien t is saying it is more midline, was noted to have a white count of 11,000. Urinalysis that was melisa tible with possible bladder or kidney infection. A CAT scan was nonspecific, did show some free flui d in the pelvis and abdomen, but they did not think it was a large amount. Working diagnosis of pyel onephritis was given and the patient was started on antibiotics and sent to Labor and Delivery for co ntinued management. This morning, the patient is alert. Her abdomen is soft. There is bruising fro m the previous surgery. Her temperature 4 hours ago was 99.5, this morning is 98. The patient is corrigan ving mild discomfort in her shoulder and neck, but nothing severe, mostly it is a lower abdominal dis comfort. A CBC is pending, also abdominal and pelvic ultrasound has been ordered to evaluate the arnaldo unt of fluid in the pelvis to see if it is increasing, stable or decreasing. Full discussion with e patient and about plans of management. We have a consult with Urology, Dr. Pete. We have a consult with laparoscopic surgeon, Dr. Mcfarland. The patient knows that if she has internal bleed ing, she will have to have another laparoscopic procedure. If she just has infection of course, she will be given antibiotics until she improves. At this point, the clinical situation is somewhat clou dy, possible pyelonephritis, although the patient really does not complain of flank pain, but we will see what develops as the day goes on and as our information comes in. Family History: Really not contributory. Allergies: THE PATIENT HAS NO APPARENT ALLERGIES. Physical Examination: Vital Signs: All stable, although 1 pulse was up to 131, but now more into the 90-100 range. HEENT: Clear. Breasts: Not examined. Heart and Lungs: Grossly normal and she was examined in the emergency room. Abdomen: Definitely bruised, but there is no rebound at this point. Extremities: Clear. Pelvic: Not done. We will proceed according to clinical response and laboratory information as it becomes available. ALEXIS/OLYA Voice ID: [id number]
[2018-01-05] MEDS ORDERED: LIDOCAINE 1% W/EPI 1:100,000 MDV 50 ML VIAL SQ ONE (13:27)
[2018-01-05] MEDS: MORPHINE 4 MG/ML SYR IV PRN ×3 (13:47→21:38)
[2018-01-05] MEDS: metroNIDAZOLE 500 MG TABLET PO SCH ×2 (13:55→20:49)
--- NOTE | 2018-01-05 16:41 | CON ---
Brief History: This is a pleasant 22-year-old lady, one ectopic was removed over a week ago. She comes in with now some belly pain and history of a UTI. She did not have a UTI last week, it may have been a nosocomial UTI. She had a slightly elevated white count of 11,000. She has some nonspecific abdominal pain. Her CT scan did show no hydro, no stones, some heterogeneity of the renal parenchyma, possible pyelo, but most of all important is few mildly prominent fluid-filled small bowel loops and fluid-filled in the cul-de- sac, bilateral adnexa. The fluid may be blood from her past surgery. She had a H and H that is slightly decreased from yesterday, some may be due to hydration, but she may need another one today. She went from 10.2-8.7. I will check another one today. Her UA did show signs of UTI. She had positive nitrite, positive esterase, positive . Urine culture is pending. She is on Rocephin. I agree with that management. I will treat her for about 10- 14 days of antibiotics total. She will go home on something p.o. that is sensitive, once the culture is back. Allergies: NO APPARENT ALLERGIES. Past Medical History: Noncontributory. Past Surgical History: Two C-sections in the past. Social History: OCCASIONAL tobacco smoking. Review of Systems: Noncontributory home. Physical Examination: Vital Signs: Temperature 98.5, pulse 100, respiratory rate 18, BP 101/58. Pain level 2. General: She is lying in bed, sleepy. is present in the room. HEENT: Atraumatic, normocephalic. Lungs: Clear. Abdomen: Soft, mildly tender bilaterally. Extremities: Normal range of motion. Laboratory Data: As discussed. Urine is positive for nitrite. Chemistry: Sodium 140, potassium 3.8, chloride 107, carbon dioxide 26, BUN 19, creatinine 0.8, GFR 88, glucose 107. Hematology: White count was 11.0, H and H was 10.2 and 30 on admission, platelets 286. This morning, her white count was 11.5 and H and H 8.7 and 26.1 and platelet counts 238. Assessment: Urinary tract infection, possible postop bleed, abdominally, pelvic. Recommendation: I agree with the IV Rocephin treatment. Awaiting final culture to come back. We will treat her for 10-14 days of antibiotics, if she does in need have some mild pyelo. It is questionable at this point. The more present issue is her abdomen, we will make sure she is not bleeding. We will check another H and H today. Dr. Mcfarland has been consulted r/o endometriosis. From that point of view, Dr. Mcdonough is out of town, Dr. Tavares is covering for her. RAYA/OLYA Voice ID: [id number] Report ID: [id number] CHANI
[2018-01-05] MEDS ORDERED: Oxycodone HCl/Acetaminophen 1 TAB TAB PO PRN (18:44)
[2018-01-05] MEDS: Oxycodone HCl/Acetaminophen 1 TAB TAB PO PRN (18:48)
[2018-01-05] MEDS: Levofloxacin500mg IV 500 MG/100 ML BAG IV SCH (20:44)
[2018-01-05] MEDS ORDERED: CEFTRIAXONE/SWI 1gm 1 GM/10 ML SYR IV SCH (21:00)
[2018-01-05] MEDS: ONDANSETRON 4 MG/2 ML VIAL IV PRN (21:35)
--- NOTE | 2018-01-05 22:40 | CON ---
Date of Consultation: 01/05/2018 Reason For Consultation: The patient with the pelvic pain and the severe anemia, status post laparos copic right salpingectomy for ectopic a week ago. The patient readmitted with increasing p ain and bloating. History Of Present Illness: The patient is a 22-year-old, 3, para 2-0-1-2, who had 2 prior C -sections followed by most recent that was a right tubal ectopic . She underwent an emergent laparoscopic right salpingectomy for a ruptured tube due to the above. She also had a D and C at that time. Her procedure date was on 12/27. The patient was discharged home after her rachel very uneventfully. She had been doing well up until postop day #6. 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 She noticed that she had increased abdominal bloating and then sharp lowe r abdominal pains, complained of having some oozing from her incision sites. The following day, she was seen by Dr. Mcdonough in her office. She was cleared from any acute problems. The patient went back to her routine; however, the pain got worse. Last evening, she had experienced some chills as well. So, she came back to the ER. Here, she was found to have anemia with a mild tachycardia and denied having any urinary dysuria or urgency. However, the patient has had increased frequency since the s urgery. No prior history of recurrent bladder infections. She had a kidney stone about 7 years ago. No other urinary history or symptoms of bowel. No diarrhea or constipation. Mostly, doing well. Review of Systems: Other than feeling fatigued, the patient mostly has no other complaints of chest pain or shortness of breath. Past Medical History: None. Past Surgical History: Significant for x2 and laparoscopic right salpingectomy and D and C on 12/27. Family History: No relevant family history. Allergies: NO KNOWN DRUG ALLERGIES. Medications: She took were just sgsv-zev-uugccgl iron. Social History: She is a smoker. Denies alcohol or drug use. Has custody of both her children. 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 Physical Examination: Vital signs: Her vital signs when I saw her this morning, T-max of 97.5, and current temperature 97. 5, her pulse rate was 115 and blood pressure 108/60, her pulse was as high as 131, and her T-max was 99.7 last evening when she came in. General: On examination, the patient was lying in her bed. She is in no acute distress. The patien t appeared to be fairly comfortable, anemic. Head and neck: She had pallor. The head and neck exam normal. Lungs: Clear. Heart: Regular rate and rhythm. Abdomen: Soft, a large ecchymotic area in the infraumbilical anterior abdominal wall incision x3 wer e seen. Abdomen was soft, tender in the pelvic area, suprapubic as well as bilateral lower quadrants . No masses were palpable. On inspection of the umbilical and right lower quadrant incisions, they were intact and normal. The left lower quadrant incision appeared to be bandaged with 2 Band-Aids, o nce this was removed immediately, there was a large amount of frankly purulent discharge that drained . Once this drainage had stopped, this area was clean and then I went ahead and did the pelvic exam. There was vulva and vagina that were normal. There were cervical motion tenderness and fundal tend erness. Possible adnexal tenderness but not as significant as it was on the uterine fundus. No puru lent discharge or blood were seen. Extremities: No edema or calf tenderness. Laboratory: Her labs were reviewed. Her white cell count was elevated at 11.0, when she was admitte d last evening and 11.5 this morning with the left shift and the neutrophil count, which was close to 90% and the absolute neutrophil count was also elevated, which is territory service representative of possible acute i nfection. Her urinalysis was positive with nitrites and leukocyte esterase 3+ and 1+ protein. Her u rine test was positive, which is not very shocking given the fact that she only had the pro cedure about 10 days ago. Her hCG quant was 345. Her pathology was reviewed. The right tube appeared to have the products of conception. There were chorionic villi that were visualized on the transvaginal ultrasound that I reviewed the images. The endometrial lining appeared to be unremarkable with 7 mm thickness. Uterus measured at 9 cm and left ovary was identified and normal. Right ovary was not identifiable. In the right adnexa and the pos terior cul-de-sac, there was heterogenic fluid most likely consistent with clotted blood. On the CT scan of the abdomen and pelvis, there appeared to be possible signs of left pyelonephritis. Post surgical changes were noted in the anterior abdominal wall. No other significant abnormal fin dings were noted. Assessment And Plan: 1.Pelvic pain, postop day #9, most likely from endometritis, cervicitis and salpingitis and the othe r source of infection could possibly be a bladder infection or acute bacterial cystitis with possible ascending infection to cause left pyelonephritis. So, the most relevant diagnosis at this time likely is endometritis. We will plan to treat her. She has been given Rocephin 1 g since last night with a working diagnosis of acute bacterial cystitis. However, at this time, changing to Levaquin and Flagyl, so it would treat both the genitourinary trac ts. A 500 mg of Levaquin once a day and Flagyl 500 t.i.d. were prescribed. Flagyl would be oral; Le vaquin we will keep it intravenous, and CBC in the morning. Clinically follow the patient, treat her adequately. We want to see a trend that is positive and with 48 hours of the antibiotics with decre ased white cell count and decreased pain. Her operative note was reviewed and there was a D and C along with the hysteroscopy and right salping ectomy, likely this could be a source which is sometimes an expected, but rare complication of this p rocedure. 1.Acute bacterial cystitis with possible left pyelonephritis with a complicated urinary tract infect ion. Discussed with Dr. Pete and we will continue to treat her with Levaquin which would work effic iently for the urine culture report. 2.Left lower quadrant infection at the incision site, this most likely has developed over the last 2 days and there was purulent discharge, did not have a swab to culture it at the bedside. However, p rocedure was done to extend the incision and I will dictate that part of procedure in the bottom. So, after incision and drainage was done with extension of incision, was packed with Nu Gauze. Plan is to change the dressings twice a day and then teach the spouse to do that when she goes home till t he incision is drained. 1.Anemia. This is most likely acute anemia from her ectopic . She could have a clot in th e cul-de-sac or in the pelvic area. This is not the only source of her pain. However, this can be c ontributing to her pain. So, discussed with the patient that this needs to be allowed to resolve spo ntaneously. No reason for any surgical intervention at this time as there is no evidence of a pelvic abscess in this patient. Procedure for I and D: After the patient was consented verbally, a 1% lidocaine mixed with 1:100,000 epinephrine about 10 cc was injected all around the incision. After the bandages were removed, then the incision was extended with a #11 blade laterally, then a 10 cc normal saline syringe was taken a nd it was flushed x3. The wound was irrigated and cleaned out. Then, 0.25-inch sterile Nu Gauze was taken and placed tightly tucked into the pocket. Then, dry 4 x 4's was placed on top and the wound bandaged. Instructions given for b.i.d. wound care. We will continue to follow the georgette nt. All these findings were discussed with Dr. Tavares and later with Dr. Pete. MAHESH/OLYA Voice ID: [id number] Report ID: [id number]
[2018-01-06] MEDS: KETOROLAC 30 MG/ML INJ IV PRN ×3 (00:35→18:05)
[2018-01-06] MEDS: IBUPROFEN 400 MG TAB PO PRN ×2 (00:41→18:05)
[2018-01-06 05:25] LABS: Absolute Lymphocytes (CBC) 0.9 K/uL (0.7-4.9); Absolute Monocytes 0.5 K/uL (0.1-1.3); Absolute Neutrophil 7.8 K/uL (1.8-8.0); Basophils % 0.3 % (0-1.3); Eosinophils % 1.8 % (0-4.4); Hematocrit 25.7 % (36.0-45.0); Lymphocytes % 9.1 % (15.3-44.8); MCH 31.9 pg (27.0-35.0); MCV 91.7 fL (80-100); MPV 8.2 fL (7.6-11.3); Monocytes % 5.8 % (3.3-12.3)
[2018-01-06] MEDS: D5 0.45 NS 1,000 ML IV SCH ×3 (05:50→15:51)
[2018-01-06] MEDS: Oxycodone HCl/Acetaminophen 1 TAB TAB PO PRN ×2 (09:36→21:46)
[2018-01-06] MEDS: metroNIDAZOLE 500 MG TABLET PO SCH ×3 (09:36→21:47)
[2018-01-06] MEDS ORDERED: MAGNESIUM HYDROXIDE 8% 30 ML PO ONE (12:00)
[2018-01-06] MEDS: ONDANSETRON 4 MG/2 ML VIAL IV PRN ×2 (12:14→18:10)
--- NOTE | 2018-01-06 13:36 | PN ---
Stephanie says her pain is better compared to yesterday, but still having to take pain medicines mer rly often. She is afebrile. She is not really ambulated yet. We need to get her up and about to pr event thrombophlebitis. Full discussion with patient and her significant other. The patient also corrigan s a history of chronic constipation. We will give her some milk of magnesia this morning and stimula te bowel movements. She is eating, although not full appetite yet. At this point it looks that we w ill keep for today, possibly home tomorrow depending upon her pain level. Obviously if she can funct ion with p.o. pain medicines, she can be given p.o. antibiotics for somewhere between 7 and 10 days. control was discussed. The patient is thinking about an IUD, but she knows that this infectio n needs to be cleared completely for probably a couple months before she should consider that. She h as tried the Nexplanon, but it gave her headaches, so the ParaGard nonhormonal IUD would probably be the best choice, although she can discuss that with Dr. Mcdonough. Full discussion today with the patien t. She will shower and then her bandage will be changed and packed again, and it is being ordered tw ice a day. She knows that will close up on its own, but she does seem to be clinically improving rap idly. ALEXIS/OLYA Voice ID: [id number] Report ID: [id number]
[2018-01-06] MEDS ORDERED: POLYETHYL GLY 3350 17 GM/DOSE PO ONE (21:00)
[2018-01-06] MEDS: Levofloxacin500mg IV 500 MG/100 ML BAG IV SCH (21:46)
[2018-01-07] MEDS: ONDANSETRON 4 MG/2 ML VIAL IV PRN ×2 (00:36→21:43)
[2018-01-07] MEDS: KETOROLAC 30 MG/ML INJ IV PRN ×3 (00:41→18:56)
[2018-01-07] MEDS: D5 0.45 NS 1,000 ML IV SCH ×4 (02:00→20:36)
[2018-01-07 06:31] LABS: Absolute Monocytes 0.5 K/uL (0.1-1.3); Absolute Neutrophil 5.3 K/uL (1.8-8.0); Basophils % 0.2 % (0-1.3); Eosinophils % 1.5 % (0-4.4); Hematocrit 25.2 % (36.0-45.0); Lymphocytes % 14.5 % (15.3-44.8); MCV 90.7 fL (80-100); MPV 8.8 fL (7.6-11.3); Monocytes % 7.7 % (3.3-12.3); RBC Red Blood Cell Count 2.78 M/uL (3.86-4.86)
[2018-01-07] MEDS: metroNIDAZOLE 500 MG TABLET PO SCH ×3 (09:25→20:36)
[2018-01-07] MEDS: IBUPROFEN 400 MG TAB PO PRN (09:25)
--- NOTE | 2018-01-07 12:58 | PN ---
A 22-year-old female, seems to be getting better every day. White count has come down in to complete ly normal range. She is afebrile. H and H are low, but stable. She knows she is anemic and needs t o take iron pills in the near future. She still has not had a bowel movement even with stimulation y day from milk of magnesia and MiraLAX. I offered today GoLYTELY, but she knows this it rather h reema, so she will decide today whether she wants to take it and if she does not, she will discuss yesenia t with Dr. Crespo tomorrow. The pain level is still fairly high. She is having to take an IV Toradol plus p.o. medicines. Her left lower quadrant port site seems to be doing better now, is minimal amou nt of discharge. She can be instructed in self-care when she goes home and I do not think she will n eed any particular physician followup on that. We will keep her today, and then she can discuss with Dr. Tadeo tomorrow whether she can be dismissed or whether the measures might be added to her curren t care plan. ALEXIS/OLYA Voice ID: [id number] Report ID: [id number]
--- NOTE | 2018-01-07 14:58 | PN ---
Subjective: The patient is feeling well. She is trying to ambulate. She has no serious complaints. Objective: Vital Signs: She is afebrile. Stable. Laboratory Data: White count has normalized. Urine culture, no growth. Assessment: 1.Pelvic pain, most likely from endometritis. I agree with Dr. Mcfarland's assessment. 2.Possible cervicitis; salpingitis. She is definitely on antibiotics for this. 3.Bladder infection. Urine did not grow any bacteria. She has gotten Rocephin and Levaquin also, w [facility] will treat her urinary tract infection. I doubt she has pyelonephritis. I think, we should go with endometritis and treat her for that. From my point of view, she is cleared. She can follow up with her DIRECTOR TALENT as ordered, and she will just need to see me p.r.nRohan DOS SANTOS/OLYA Voice ID: [id number] Report ID: [id number]
[2018-01-07] MEDS ORDERED: GOLYTELY 4000 ML PO SCH (17:00)
[2018-01-07] MEDS: Levofloxacin500mg IV 500 MG/100 ML BAG IV SCH (20:36)
[2018-01-08] MEDS: D5 0.45 NS 1,000 ML IV SCH ×2 (04:41→10:00)
[2018-01-08] MEDS: KETOROLAC 30 MG/ML INJ IV PRN (04:41)
[2018-01-08] MEDS: metroNIDAZOLE 500 MG TABLET PO SCH ×2 (08:51→13:56)
[2018-01-08 10:31] VITALS: O2SAT 98
[2018-01-08 13:13] LABS: Absolute Lymphocytes (CBC) 1.2 K/uL (0.7-4.9); Absolute Monocytes 0.5 K/uL (0.1-1.3); Basophils % 0.2 % (0-1.3); Eosinophils % 0.7 % (0-4.4); Hematocrit 27.3 % (36.0-45.0); Lymphocytes % 18.3 % (15.3-44.8); MCH 30.4 pg (27.0-35.0); MCV 90.6 fL (80-100); Monocytes % 7.4 % (3.3-12.3); RBC Red Blood Cell Count 3.01 M/uL (3.86-4.86)
[2018-01-08 14:37] VITALS: BP 116/72; TEMP 97.3
--- NOTE | 2018-01-08 22:47 | P.DS ---
Admission Date: 01/05/18 Discharge Date: 01/08/18 Disposition: ROUTINE DISCHARGE Vital Signs/Physical Exam: Temp Pulse Resp BP Pulse Ox 97.3 F 99 H 16 116/72 99 01/08/18 12:00 01/08/18 12:00 01/08/18 12:00 01/08/18 12:00 01/08/18 12:00 Laboratory Data at Discharge: WBC 6.8 K/uL (4.3-10.9) 01/08/18 12:44 Hgb 9.2 g/dL (12.0-15.0) L 01/08/18 12:44 Hct 27.3 % (36.0-45.0) L 01/08/18 12:44 Plt Count 351 K/uL (152-406) D 01/08/18 12:44 Sodium 140 mmol/L (136-145) 01/04/18 23:40 Potassium 3.8 mmol/L (3.5-5.1) 01/04/18 23:40 BUN 19 mg/dL (7-18) H 01/04/18 23:40 Creatinine 0.80 mg/dL (0.55-1.3) 01/04/18 23:40 Glucose 107 mg/dL (74-106) H 01/04/18 23:40 Total Bilirubin 0.5 mg/dL (0.2-1.0) 01/04/18 23:40 AST 93 U/L (15-37) H 01/04/18 23:40 ALT 153 U/L (12-78) H 01/04/18 23:40 Alkaline Phosphatase 165 U/L (45-117) H 01/04/18 23:40 Lipase 94 U/L (73-393) 01/04/18 23:40 Home Medications: Allopurinol 100 mg PO DAILY 01/05/18 Chlorthalidone 25 mg PO DAILY 01/05/18 Lisinopril 40 mg PO DAILY 01/05/18 Pravastatin Sodium [Pravachol] 40 mg PO DAILY 01/05/18
== END 2018-01-08 15:42 | disposition home or self-care (01) | DRG 857 ==
LOC: ER 22:52 → ERHOLD 01-05 01:43 → 2ND-WC 01-05 03:27 → 2ND 01-05 19:50
PROVIDERS: ADMIT Student in an Organized Health Care Education/Training Program; ATTEND Specialist
PROC: 0W9F0ZX Drainage of Abdominal Wall, Open Approach, Diagnostic (ICD-10-PCS; principal; 2018-01-05)
DX: T81.43XA Infection following a procedure, organ and space surgical site, initial encounter (principal); N30.00 Acute cystitis without hematuria; F17.210 Nicotine dependence, cigarettes, uncomplicated; D64.9 Anemia, unspecified; R00.0 Tachycardia, unspecified; B99.8 Other infectious disease; K59.09 Other constipation; N71.9 Inflammatory disease of uterus, unspecified; N72 Inflammatory disease of cervix uteri; N70.91 Salpingitis, unspecified; Y92.019 Unspecified place in single-family (private) house as the place of occurrence of the external cause
CPT/HCPCS: 36415; 74177; 76817; 80048; 80076; 81003; 81025; 83690; 84702; 85014; 85025; 86850; 86870; 86900; 86901; 87086; 87088; 88142; 96361; 96365; 96375; 99285; J0696; J2405; J3010; J7030; Q9967

== ENCOUNTER 2018-05-03 21:49 | Emergency (ER) | payer OTHER, SELFPAY ==
--- NOTE | 2018-05-04 00:43 | ER ---
Nurse's Notes [facility] Name: Stephanie Mcfarland Age: 22 yrs Sex: Female : 1995 Arrival Date: 05/03/2018 Time: 21:59 Bed 9 Private MD: Diagnosis: Acute upper respiratory infection, unspecified Presentation: 05/03 22:35 Presenting complaint: Patient states: that she has sore throat, cough with green sputum fc and body aches that started 3 days ago. Transition of care: patient was not received from another setting of care. Onset of symptoms was May 01, 2018. Risk Assessment: Do you want to hurt yourself or someone else? Patient reports no desire to harm self or others. Initial Sepsis Screen: Does the patient meet any 2 criteria? No. Patient's initial sepsis screen is negative. Does the patient have a suspected source of infection? No. Patient's initial sepsis screen is negative. Care prior to arrival: Medication(s) given: Tylenol, 650 mg, at 1900. 22:35 Method Of Arrival: Ambulatory fc 22:35 Acuity: OPHELIA 4 fc Triage Assessment: 22:54 General: Appears uncomfortable, well groomed, Behavior is calm, cooperative, fc appropriate for age. Pain: Complains of pain in body Pain currently is 7 out of 10 on a pain scale. Quality of pain is described as aching, Pain began 2-3 days ago. Is continuous. EENT: Reports nasal congestion nasal discharge that is green pain when swallowing. Neuro: Level of Consciousness is awake, alert, obeys commands, Oriented to person, place, time, situation, Appropriate for age. Cardiovascular: No deficits noted. Respiratory: Reports cough that is Airway is patent Trachea midline Respiratory effort is even, unlabored, Respiratory pattern is regular, symmetrical, Breath sounds are clear bilaterally. GI: No deficits noted. : No deficits noted. Derm: Skin is pink, warm \T\ dry. Musculoskeletal: Circulation, motion, and sensation intact. Capillary refill < 3 seconds, Range of motion: intact in all extremities. 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 - Social history:: Smoking status: unknown. - Ebola Screening: : Patient negative for fever greater than or equal to 101.5 degrees Fahrenheit, and additional compatible Ebola Virus Disease symptoms Patient denies exposure to infectious person Patient denies travel to an Ebola-affected area in the 21 days before illness onset. Screenin:47 Abuse screen: Denies threats or abuse. Nutritional screening: No deficits noted. Tuberculosis screening: No symptoms or risk factors identified. Fall Risk None identified. Assessment: 23:46 Reassessment: No change in condition. See triage assessment. 05/04 00:15 Reassessment: No changes from previously documented assessment. Patient and/or family fc updated on plan of care and expected duration. Pain level reassessed. Patient is alert, oriented x 3, equal unlabored respirations, skin warm/dry/pink. 00:45 Reassessment: No changes from previously documented assessment. Patient and/or family fc updated on plan of care and expected duration. Pain level reassessed. Patient is alert, oriented x 3, equal unlabored respirations, skin warm/dry/pink. Pt pending discharge. Vital Signs: 05/03 22:37 BP 133 / 81; Pulse 99; Resp 18; Temp 97.5(O); Pulse Ox 100% on R/A; Weight 68.04 kg fc (R); Height 5 ft. 4 in. (162.56 cm) (R); Pain 7/10; 22:37 Body Mass Index 25.75 (68.04 kg, 162.56 cm) ED Course: 21:59 Patient arrived in ED. am2 22:36 Triage completed. 22:37 Arm band placed on Patient placed in waiting room, on a stretcher. 23:47 Patient has correct armband on for positive identification. Call light in reach. 23:47 No provider procedures requiring assistance completed. 05/04 00:31 Reuben Miller PA is PHCP. cp 00:31 Wero Liu MD is Attending Physician. cp 01:03 Patient did not have IV access during this emergency room visit. Administered Medications: No medications were administered Outcome: 00:42 Discharge ordered by . cp 01:03 Discharged to home ambulatory. 01:03 Condition: good 01:03 Discharge instructions given to patient, Instructed on discharge instructions, follow up and referral plans. medication usage, Demonstrated understanding of instructions, follow-up care, medications, Prescriptions given X 2. 01:04 Patient left the ED. Signatures: Naomie Ramesh RN RN Reuben Miller PA PA cp Moreno, Amanda am2
--- NOTE | 2018-05-04 00:43 | EDPHYS ---
Physician Documentation [facility] Name: Stephanie Mcfarland Age: 22 yrs Sex: Female : 1995 Arrival Date: 05/03/2018 Time: 21:59 Bed 9 Private MD: ED Physician Wero Liu HPI: 05/04 00:00 This 22 yrs old Female presents to ER via Ambulatory with complaints of Flu cp Symptoms. 00:00 The patient or guardian reports cough, that is intermittent, with productive sputum, cp that is green. Onset: The symptoms/episode began/occurred 2 day(s) ago. Associated signs and symptoms: Pertinent positives: sore throat, Pertinent negatives: diarrhea, vomiting. Reports child recently diagnosed with influenza. [employer]: 05/03 22:37 LMP 05/03/2018 fc Historical: - Allergies: 22:37 No Known Allergies; fc - Home Meds: 22:37 None [Active]; fc - PMHx: 22:37 None; fc - PSHx: 22:37 ; etopic preg with tube removal; fc - Immunization history:: Last tetanus immunization: up to date Flu vaccine is up to date. - Social history:: Smoking status: unknown. - Ebola Screening: : Patient negative for fever greater than or equal to 101.5 degrees Fahrenheit, and additional compatible Ebola Virus Disease symptoms Patient denies exposure to infectious person Patient denies travel to an Ebola-affected area in the 21 days before illness onset. ROS: 05/04 00:10 Constitutional: Positive for body aches, Negative for chills, fever, poor PO intake. cp 00:10 Eyes: Negative for injury, pain, redness, and discharge. cp 00:10 ENT: Positive for sore throat, Negative for drainage from ear(s), ear pain, difficulty swallowing, difficulty handling secretions. 00:10 Neck: Negative for pain with movement, pain at rest, stiffness. 00:10 Cardiovascular: Negative for chest pain. 00:10 Respiratory: Positive for cough, with green sputum, Negative for shortness of breath, wheezing. 00:10 Abdomen/GI: Negative for abdominal pain, vomiting, diarrhea, constipation. 00:10 : Negative for urinary symptoms. 00:10 Skin: Negative for cellulitis, rash. 00:10 Neuro: Negative for altered mental status, headache, weakness. 00:10 All other systems are negative. Exam: 00:15 Constitutional: The patient appears in no acute distress, alert, awake, non-toxic, well cp developed, well nourished. 00:15 Head/Face: Normocephalic, atraumatic. cp 00:15 Eyes: Periorbital structures: appear normal, Conjunctiva: normal, no exudate, no injection, Lids and lashes: appear normal, bilaterally. 00:15 ENT: External ear(s): are unremarkable, Ear canal(s): are normal, clear, TM's: bulging, is not appreciated, bilaterally, dullness, bilaterally, erythema, is not appreciated, bilaterally, Nose: is normal, Mouth: Lips: moist, Oral mucosa: pink and intact, moist, Posterior pharynx: Airway: no evidence of obstruction, patent, Tonsils: no enlargement, no exudate, swelling, is not appreciated, erythema, that is mild, exudate, is not appreciated, Voice: is normal. 00:15 Neck: ROM/movement: is normal, is supple, without pain, no range of motions limitations, no meningismus, no nuchal rigidity, Lymph nodes: no appreciated lymphadenopathy. 00:15 Chest/axilla: Inspection: normal. 00:15 Cardiovascular: Rate: normal, Rhythm: regular. 00:15 Respiratory: the patient does not display signs of respiratory distress, Respirations: normal, no use of accessory muscles, no retractions, no splinting, no tachypnea, labored breathing, is not present, Breath sounds: are clear throughout, no decreased breath sounds, no stridor, no wheezing. 00:15 Abdomen/GI: Exam negative for discomfort, distension, guarding, Inspection: abdomen appears normal. 00:15 Skin: cellulitis, is not appreciated, no rash present. Vital Signs: 05/03 22:37 BP 133 / 81; Pulse 99; Resp 18; Temp 97.5(O); Pulse Ox 100% on R/A; Weight 68.04 kg fc (R); Height 5 ft. 4 in. (162.56 cm) (R); Pain 7/10; 22:37 Body Mass Index 25.75 (68.04 kg, 162.56 cm) MDM: 05/04 00:00 Differential diagnosis: bronchitis, flu, URI, strep throat, pneumonia. cp 00:31 Patient medically screened. cp 00:40 Data reviewed: vital signs, nurses notes, lab test result(s), and as a result, I will cp discharge patient. 00:40 Counseling: I had a detailed discussion with the patient and/or guardian regarding: the cp historical points, exam findings, and any diagnostic results supporting the discharge/admit diagnosis, lab results, to return to the emergency department if symptoms worsen or persist or if there are any questions or concerns that arise at home. ED course: VSS. Will treat for influenza with oral tamiflu due to exposure. 05/03 22:35 Order name: Strep fc 05/03 22:35 Order name: Flu fc 05/03 23:18 Order name: Group A Streptococcus Rapid Sc; Complete Time: 00:38 EDMS 05/03 23:18 Order name: Influenza Screen (A ; Complete Time: 00:38 EDMS Administered Medications: No medications were administered Disposition: 20:41 Co-signature as Attending Physician, Wero Liu MD. Disposition: 05/04/18 00:42 Discharged to Home. Impression: Acute upper respiratory infection, unspecified. - Condition is Stable. - Discharge Instructions: Upper Respiratory Infection, Adult. - Prescriptions for Ibuprofen 800 mg Oral Tablet - take 1 tablet by ORAL route every 8 hours As needed take with food; 30 tablet. Tamiflu 75 mg Oral Capsule - take 1 tablet by ORAL route every 12 hours for 5 days; 10 tablet. - Work release form, Medication Reconciliation Form, Thank You Letter, Antibiotic Education, Prescription Opioid Use form. - Follow up: Private Physician; When: 2 - 3 days; Reason: Worsening of condition. - Problem is new. - Symptoms are unchanged. Signatures: Dis[facility] Naomie Ramesh RN RN Reuben Cifuentes PA PA cp Starr, Gregory, MD MD Corrections: (The following items were deleted from the chart) 01:04 00:42 05/04/2018 00:42 Discharged to Home. Impression: Acute upper respiratory fc infection, unspecified. Condition is Stable. Forms are Medication Reconciliation Form, Thank You Letter, Antibiotic Education, Prescription Opioid Use. Follow up: Private Physician; When: 2 - 3 days; Reason: Worsening of condition. Problem is new. Symptoms are unchanged. cp
[2018-05-04 02:56] VITALS: BP 133/81; TEMP 97.5; O2SAT 100
== END 2018-05-04 01:04 | disposition home or self-care (01) ==
LOC: ER 21:49
DX: J06.9 Acute upper respiratory infection, unspecified (principal)
CPT/HCPCS: 87070; 87081; 87804; 99282